=== PATIENT | male | born 1940 | race Caucasian/White ===

== ENCOUNTER 2016-04-05 05:57 | Day surgery (SDC) | payer OTHER ==
--- NOTE | 2016-04-03 11:54 | EKG Report ---
Test Performed on : 04/03/2016 11:36:40 AM Test Reason : PAT Blood Pressure : / mmHG Vent. Rate : 078 BPM Atrial Rate : 078 BPM P-R Int : 330 ms QRS Dur : 142 ms QT Int : 428 ms P-R-T Axes : 070 103 -04 degrees QTc Int : 487 ms Sinus rhythm. with 1st degree AV block. Right bundle branch block Possible Inferior infarct , age undetermined Abnormal ECG When compared with ECG of 20-FEB-2016 17:53, No significant change was found Confirmed by Jeronimo Ko MD ([id number]) on 04/03/2016 9:51:42 PM
[2016-04-05] MEDS ORDERED: PEPCID ONE (06:17)
[2016-04-05] MEDS ORDERED: REGLAN ONE (06:17)
[2016-04-05] MEDS ORDERED: 1/2 NS 500 ML ONE (06:17)
[2016-04-05] MEDS ORDERED: KEFZOL 1 GM/D5W 50 ML ONE (06:18)
[2016-04-05 06:39] LABS: HEMATOCRIT 29.9 % (42.0-52.0); HEMOGLOBIN 10.4 g/dL (14.0-18.0); MCH 35.3 PG (27-31); MCHC 34.8 g/dL (33-37); MCV 101.4 FL (81-99); MPV 9.9 FL (7.4-10.4); RBC 2.95 XMIL (4.7-6.1)
[2016-04-05 07:14] LABS: CALCIUM 9.8 mg/dL (8.8-10.2); POTASSIUM 4.2 mmol/L (3.5-5.1)
[2016-04-05] MEDS: HUMULIN R ONE (07:55)
[2016-04-05] MEDS ORDERED: HEPARIN ONE ×2 (08:03→13:12)
[2016-04-05] MEDS ORDERED: KEFZOL ONE (08:03)
[2016-04-05] MEDS ORDERED: XYLOCAINE 1%/EPI 1:100,000 ONE (08:04)
[2016-04-05] MEDS ORDERED: NS 1,000 ML ONE (08:04)
--- NOTE | 2016-04-05 10:18 | OPERATIVE NOTE ---
PROCEDURE DATE: 04/05/2016 DATE OF SURGERY: 04/05/2016. PROCEDURE: Construction of left radiocephalic arteriovenous fistula; removal of peritoneal dialysis catheter. SURGEON: Dr. Kamran Menendez. RADIOLOGY RN: Kajal. PREOPERATIVE DIAGNOSIS: Chronic kidney disease, V. POSTOPERATIVE DIAGNOSIS: Chronic kidney disease, V. INDICATIONS: A 75-year-old who does not want to continue PD dialysis; he prefers to switch to hemo for permanent dialysis. DESCRIPTION OF PROCEDURE: Satisfactory general anesthesia was achieved. The left arm was extended, prepped and draped in a sterile fashion. We made a curvilinear linwood on the radial side of the forearm near the wrist. We anesthetized the skin with 1% lidocaine with epinephrine, incised the skin, and carried our incision through the subcutaneous tissue. We identified the left radial artery. It was somewhat calcific. We surrounded with vessel loops proximally and distally. We gave the patient 5000 units of heparin systemically. We then identified the cephalic vein, and we noted where it branched. We marked the vein so we would not twist it. We then ligated the branches, suture ligated them both and divided the vein so that we would have a spatulated vein at the anastomotic site. We irrigated out the vein with heparinized saline to dilate it somewhat. We then translocated it over to the artery. We then occluded flow in the artery with some DeBakey clamps because of the calcium. We incised the artery on its radial side. We made a longitudinal arteriotomy that was probably about 3-4 mm long. We then laid the spatulated vein over to the artery, and then used a 7-0 Prolene stitch under 2.5 loupe magnification to construct the end-to-side anastomosis. Before we finished the anastomosis, we passed a 2 probe distal and proximal to be sure that the artery was preserved after being clamped, and it was. There was good flow. We then finished the anastomosis and flow was established. A couple of extra stitches provided complete hemostasis and flow was present in the vein. We placed 3-0 Polysorb in the subcutaneous tissue and closed the skin with a 4-0 Polysorb subcuticular stitch. Telfa and sterile OpSite were applied. We then reprepped and draped the abdomen with the PD catheter exiting the prepped area in the upper outer quadrant. We anesthetized the skin at the umbilicus. We incised the skin, and carried our incision down to the fascia level. There the tunnel catheter was coming into the wound. We then dissected up the tunnel until we freed up the cuff. We divided the catheter externally and then delivered the tunnel portion of the catheter through the wound. We then freed up the cuff from the fascia, incising the fascia around it circumferentially until we reached the non cuff portion inside the abdominal cavity. Then, this allowed us to deliver that portion out of the abdominal cavity completely. The catheter was then handed off. The hole in the fascia was then closed with a 2-0 Polysorb [id number] stitch. Then, 3-0 Polysorb was placed in the subcutaneous tissue, and the skin was closed with 4-0 Polysorb subcuticular stitch. Telfa and sterile OpSite was applied. A Band-Aid was placed over the catheter exit site. He tolerated it well and was sent to the recovery room in satisfactory condition.
[2016-04-05 12:01] VITALS: BP 147/70
[2016-04-05] MEDS ORDERED: VERSED ONE (13:02)
[2016-04-05] MEDS ORDERED: KETAMINE (DOSE) ONE (13:03)
[2016-04-05] MEDS ORDERED: AMIDATE ONE (13:13)
[2016-04-05] MEDS ORDERED: EPHEDRINE ONE (13:13)
[2016-04-05] MEDS ORDERED: XYLOCAINE-MPF 2% ONE (13:13)
[2016-04-05] MEDS ORDERED: NS 250 ML ONE (13:14)
== END 2016-04-05 11:40 | disposition home or self-care (01) ==
LOC: OPS 05:57
PROVIDERS: ATTEND Surgery
DX: I12.0 Hypertensive chronic kidney disease with stage 5 chronic kidney disease or end stage renal disease (principal); N18.5 Chronic kidney disease, stage 5; Z87.891 Personal history of nicotine dependence
CPT/HCPCS: 80048; 82948; 85027; 93005; 93010; J0690; J1644; J2250; J7030; J7050

== ENCOUNTER 2018-02-13 15:56 | Inpatient (IN) ==
[2018-02-13] MEDS ORDERED: TYLENOL PO PRN (16:22)
[2018-02-13] MEDS ORDERED: ZOFRAN IV PRN (16:22)
[2018-02-13] MEDS ORDERED: SALINE LOCK IV FLUID XX ONE (16:22)
[2018-02-13] MEDS ORDERED: RENAGEL PO SCH (17:00)
[2018-02-13] MEDS: SOLU-MEDROL IV SCH (17:45)
[2018-02-13] MEDS: ROCEPHIN 1 GM in NS 50 ML IV SCH (17:48)
[2018-02-13] MEDS: ROBITUSSIN-DM PO SCH ×2 (17:49→21:26)
[2018-02-13] MEDS: ALBUTEROL NEB INH SCH ×2 (19:30→23:35)
[2018-02-13] MEDS ORDERED: INSULIN PEN NEEDLES ONE (20:36)
[2018-02-13] MEDS: ELIQUIS PO SCH (21:22)
[2018-02-13] MEDS: ZITHROMAX 500 MG/NS 500 MG/250 ML IVPB IV SCH (21:22)
[2018-02-13] MEDS: BASAGLAR SUBQ SCH (21:23)
[2018-02-13] MEDS: ATIVAN PO PRN (21:31)
[2018-02-13] MEDS: HUMULIN R SUBQ SCH (21:31)
--- NOTE | 2018-02-14 00:15 | HISTORY AND PHYSICAL ---
CHIEF COMPLAINT: Wheezing and cough. HPI: The patient is a 77-year-old white male comes in with 2 to 3 day history of prominent chest congestion and wheezing, shortness of breath with any exertion at all, struggling to breathe at night. He woke up around 3:30 a.m. with shortness of breath this morning. He has had some 6 month history of some mild cough. This had really worsened over the past 2 to 3 days. The patient had a negative chest x-ray on 08/27/2017. He suffers from ESRD and is on hemodialysis and followed by Dr. Soriano with last hemodialysis yesterday. He takes hemodialysis on Tuesdays, and Saturdays per Dr. Soriano. He says they have been trying to take some fluid off of him recently but he has been unable do so due to severe weakness. MEDICATIONS: Prior to admission are Lipitor 40 mg p.o. daily, Flomax 0.4 mg p.o. daily, vitamin D3 2000 units p.o. daily, Synthroid 75 mcg p.o. daily, Eliquis 2.5 mg p.o. b.i.d., Ativan 1 mg p.o. q.4 hours p.r.n. anxiety he takes this prior to his hemodialysis treatments, Dialyvite 800 tablet 0.8 mg p.o. daily, calcitriol 0.25 mcg p.o. daily, Renvela 800 mg 3 p.o. t.i.d., MiraLAX 17 g in 8 ounces of water daily, Endocet 10 one p.o. q.4 hours p.r.n. pain. ALLERGIES: Hydrocodone and milk products. PAST MEDICAL HISTORY: 1. Diabetes mellitus dating back to 1989 on chronic insulin treatment now. 2. BPH. 3. History of kidney stones. 4. History of glaucoma remote. 5. History of benign colon polyps. 6. Erectile dysfunction. 7. Bladder cancer 2001. 8. Hypercholesterolemia. 9. CAD with prior history of CABG diagnosed 2005. 10. Paroxysmal atrial fibrillation and flutter dating back to 2005 when he had his CABG but atrial flutter occurred in 2013. 11. Hypothyroidism. 12. ESRD on hemodialysis since 2015. PAST SURGICAL HISTORY: 1. Kidney stone extraction x2. 2. Anal fissurectomy. 3. Skin graft to right leg. 4. TURP. 5. Bladder cancer surgery 2001. 6. Left cataract 2002. 7. Lithotripsy. 8. CABG 2005. 9. Partial thyroidectomy. 10. Right CTS release December 2010. 11. Knee arthroscopy December 2007. 12. Bronchoscopy March 2010. IMMUNIZATIONS: Pneumovax 23 given December 1998 and April 2004, influenza vaccination given October 2017, Zostavax given November 2006. SOCIAL HISTORY: The patient lives in [place]. He is . He has 2 daughters. Retired government worker. Quit smoking in 1981 and has a 20 pack year history of smoking. Has been a drinker about 2 beers per week in the past but has not been a drinker of late. ROS: Negative except as above. PHYSICAL EXAMINATION: Height 6 feet 3 inches tall, weight 285, blood pressure 130/70, heart rate 72, BMI 36, temperature 96.8, O2 saturation on room air 92-93%, respirations 36. GENERAL: Moderately obese white male with marked increased work of breathing and tachypnea. SKIN: No skin breakdown. HEENT: NC/AT, JAMES, EOMI. Sclerae anicteric. OP no significant redness. Tongue in the midline. NECK: No LA, TMG or bruits. Mild JVD. CV: RRR without distinct murmur. LUNGS: Coarse breath sounds bilaterally with mild to moderate expiratory wheezes, albuterol nebulizer treatment given in the office and he saw some mild improvement in the wheezes with that. BACK: Nontender. ABDOMEN: Protuberant, soft, no mass, organomegaly appreciated but abdomen is quite large. /RECTAL: Deferred. EXTREMITIES: 2+ lower extremity edema chronic. NEURO: Cranial nerves are intact. He moves all extremities well. No focal deficits. DATA: Chest x-ray was obtained and shows no acute disease. Labs show white count of 9.22, hemoglobin 10, hematocrit 32.2, MCV 105, platelets 163,000, neutrophils 75, lymphocytes 9.1, monocytes 11. Sodium 140, potassium 5.1, chloride 95, CO2 27, BUN 69, creatinine 8.5, glucose 242, calcium 9.2, proBNP 17,332, plasma lactate 1.2. ABG on room air pH 7.35, pCO2 51, PO2 59, HC03 26.3, O2 saturation 91.4. ASSESSMENT: 1. Acute respiratory distress with hypercapnia associated with #2 . 2. Acute bronchitis. 3. Mild diastolic congestive heart failure associated with end-stage renal disease. 4. End-stage renal disease on hemodialysis per Dr. Soriano. 5. Coronary artery disease. 6. Paroxysmal atrial fibrillation /flutter on chronic anticoagulation. 7. Hypothyroidism. 8. Remote history of bladder cancer. 9. Hypercholesterolemia. 10. Insulin-requiring diabetes mellitus. PLAN: Will admit the patient to [facility]. Keep him at saline lock. Will ask Dr. Soriano to consult in regard to his hemodialysis treatments. Will start him on IV antibiotics in the form of Rocephin and Zithromax, give him Solu-Medrol and albuterol nebulizer treatments, Robituscam SILVER to help with pulmonary toilet. Will give him oxygen supplementation 2 L/minute per nasal cannula during the day and BiPAP at night to try to help with the hypercapnia. Will continue his home medications. Will monitor serial Accu-Cheks and give him SSI as we expect his blood sugar to rise associated with the steroid administration. Continue his Basaglar in relation to that as well. cc: Pop Ward MD
[2018-02-14] MEDS: SOLU-MEDROL IV SCH ×3 (01:20→16:34)
[2018-02-14] MEDS: ROBITUSSIN-DM PO SCH ×6 (01:20→21:22)
[2018-02-14] MEDS: ALBUTEROL NEB INH SCH ×6 (03:30→22:56)
[2018-02-14] MEDS: HUMULIN R SUBQ SCH ×5 (05:25→21:38)
[2018-02-14 06:09] LABS: BASO# 0.01 X1000 (0.0-0.2); BASO% 0.1 % (0.0-0.8); EOS# 0.01 X1000 (0.0-0.7); EOS% 0.1 % (0.0-10.0); HEMOGLOBIN 10.1 g/dL (14.0-18.0); IMM GRAN# 0.06 X1000 (0.0-0.04); IMM GRAN% 0.7 % (0.0-0.5); LYMPH% 3.3 % (20.5-51.1); MCH 33.4 PG (27-31); MCHC 31.6 g/dL (33-37); MONO# 0.09 X1000 (0.11-0.59); MPV 10.3 FL (7.4-10.4); NEUT# 8.66 X1000 (1.4-6.5); NEUT% 94.8 % (42.2-75.2); PLT 134 X1000 (130-400); RBC 3.02 XMIL (4.7-6.1); RDW 17.7 % (11.5-14.5); WBC 9.13 X1000 (4.8-10.8)
[2018-02-14 06:13] LABS: HEMOGLOBIN A1C 7.5 % (4.8-6.0)
[2018-02-14] MEDS: SYNTHROID PO SCH (06:25)
[2018-02-14 07:05] LABS: CALCIUM 8.9 mg/dL (8.8-10.2); CREATININE 9.9 mg/dL (0.7-1.2)
[2018-02-14 07:37] LABS: BANDS 2 % (0-1); LYMPHS 2 % (21-51); SEGS 96 % (42-75)
[2018-02-14] MEDS ORDERED: INSULIN PEN NEEDLES ONE (08:29)
[2018-02-14] MEDS: NEPHRO-VITE PO SCH (08:34)
[2018-02-14] MEDS: FLOMAX PO SCH (08:34)
[2018-02-14] MEDS: ELIQUIS PO SCH ×2 (08:35→21:24)
[2018-02-14] MEDS: MIRALAX PO SCH (08:35)
[2018-02-14] MEDS: LIPITOR PO SCH (08:35)
[2018-02-14] MEDS: ROCALTROL PO SCH (08:35)
[2018-02-14] MEDS: VITAMIN D PO SCH (08:35)
[2018-02-14] MEDS: ZYLOPRIM PO SCH (08:40)
[2018-02-14] MEDS: BASAGLAR SUBQ SCH ×2 (08:40→21:38)
[2018-02-14] MEDS ORDERED: TIGHT: 0.2 ML/HR FOR DIALYSIS MISC PRN (09:36)
[2018-02-14] MEDS ORDERED: HEPARIN IV PRN (09:36)
[2018-02-14] MEDS ORDERED: NS 2,000 ML MISC PRN (09:36)
[2018-02-14] MEDS: TUMS PO SCH ×2 (12:08→16:35)
--- NOTE | 2018-02-14 12:24 | PROGRESS NOTE ---
DATE: 02/14/2018 SUBJECTIVE: The patient is awake and alert. He seemed a little confused, but not severely. He has not yet gone down to dialysis. His potassium is high. OBJECTIVE: Afebrile, pulse 74, respirations 15, blood pressure 133/50, O2 saturation on 5 L 98%. CV: RRR without distinct murmur. Lungs: Mild expiratory wheezes bilaterally, not particularly changed from yesterday. Abdomen very protuberant, soft, nontender. Active bowel sounds. Extremities: 2+ lower extremity edema. Neurologic: He moves all extremities well. No focal deficits. Mild confusion. LABORATORY DATA: Sodium 139, potassium 6.0, chloride 95, CO2 of 21. BUN 85, creatinine 9.9, blood sugars in the low 300s. A1c 7.5, calcium 8.9. White count 9.13, hemoglobin 10.1. Platelets 134,000. Neutrophils 95, lymphocytes 3.3. ASSESSMENT: 1. Acute respiratory distress with hypercapnia. 2. Acute bronchitis. 3. Diastolic congestive heart failure exacerbation associated with end-stage renal disease. 4. End-stage renal disease; on hemodialysis per Dr. Soriano. 5. Hyperkalemia associated with his renal disease. 6. Coronary artery disease. 7. Paroxysmal atrial fibrillation/flutter; on chronic anticoagulation. 8. Hypothyroidism. 9. Remote history of bladder cancer. 10. Hypercholesterolemia. 11. Insulin resistant diabetes mellitus. PLAN: We are going to continue him on IV antibiotics in the form of Rocephin and Zithromax. Continue IV Solu-Medrol, albuterol nebulizer treatments, Robitussin DM. We have given him supplemental oxygen, but I am fearful he is getting a little extra oxygen at this point, and he did do the BiPAP well with tolerability last evening and was trying to use at night and oxygen during the day. We will check an ABG now to see if we need to add BiPAP during the day. Hopefully, the dialysis that he will receive today per Dr. Soriano will help as well in regard to his lung status. Continue serial Accu-Cheks. Will bump his SSI up from medium dose to high-dose to account for the elevation associated with the steroid administration. Continue Basaglar b.i.d. that he is on at home. Repeat labs, ABG, chest x-ray in the morning. cc: Pop Ward MD MTDD
[2018-02-14 12:39] LABS: ALLEN TEST YES; BE -7.2 mmoll (-3.0-3.0); BLOOD TYPE ARTERIAL; HCO3-(ACT) 19.3 mmoll (20.0-26.0); METHB 1.3 % (0.0-1.5); O2(CT) 13.3 mL/dL (15.0-23.0); O2HB 93.5 % (95.0-99.0); PO2(98.6) 91 mmHg (60-100); SAMPLE BLOOD; SAO2 95.5 % (95.0-100.0)
[2018-02-14 12:41] LABS: MODALITY CANNULA; PCO2(98.6) 59 mmHg (35-45); pH(98.6) 7.17 (7.35-7.45)
[2018-02-14] MEDS ORDERED: VANCOMYCIN 1 GM/NS 1 GM/250 ML IVPB IV SCH (13:00)
[2018-02-14] MEDS ORDERED: TUMS PO SCH (13:00)
[2018-02-14] MEDS ORDERED: VANCOMYCIN IV PER PHARMACY MISC SCH (13:00)
--- NOTE | 2018-02-14 14:56 | NEPHROLOGY CONSULTATION ---
DATE: 02/14/2018 REASON FOR CONSULTATION: End-stage renal disease, on hemodialysis. HISTORY OF PRESENT ILLNESS: Mr. Ayala is a 77-year-old white male. He is well known to us. He has CKD 5D secondary to diabetes. Also, history of atrial fibrillation, coronary disease, peripheral vascular disease, hypertension, BPH, etc. He has had 2 to 3 days of worsening cough, nasal discharge, increasing shortness of breath. He had his normal dialysis on at which time wheezing was noted. He sought attention with Dr. Ward and was admitted on Friday. No chills, fever, sweats, night sweats, etc. PAST MEDICAL HISTORY: As listed above. HOME MEDICATIONS: 1. Atorvastatin. 2. Tamsulosin. 3. Cholecalciferol. 4. Levothyroxine. 5. Allopurinol. 6. Apixaban. 7. Insulin. 8. Cinacalcet. 9. Diphenhydramine. 10. Insulin. 11. Lorazepam. 12. Melatonin. 13. Multivitamin. 14. Calcium carbonate. ALLERGIES: Hydrocodone. SOCIAL HISTORY: He lives with his . She is his primary caregiver. No alcohol or tobacco. FAMILY HISTORY: Noncontributory. REVIEW OF SYSTEMS: Noncontributory. PHYSICAL EXAMINATION: Vital Signs: Blood pressure 133/50, heart rate 74, respirations 15, afebrile. General: No acute distress, but he is sitting up and has increased respiratory rate and work of breathing. Skin: Warm and dry. Conjunctivae are pink. Oropharynx is clear. Neck: Supple. Neck veins are increased. Trachea is midline. Heart: Regular with systolic murmur. Lungs: Have equal breath sounds with wheezes and rhonchi. Decreased breath sounds overall. Abdomen: Obese, soft, nontender. Bowel sounds are present. Extremities: Have 2+ edema. No clubbing or cyanosis. IMPRESSION: 1. Chronic kidney disease 5D. Moderate hyperkalemia today. Potassium 6.0. Anemia in target. 2. Acidosis: Acute respiratory acidosis. This can be managed by BiPAP if needed. 3. He will have hemodialysis today with a goal of 4 L ultrafiltration. Over the next week, we will dialyze daily to address his volume overload aggressively. cc: MD Pop Chow MD
[2018-02-14] MEDS: ROCEPHIN 1 GM in NS 50 ML IV SCH (16:34)
[2018-02-14] MEDS ORDERED: VANCOMYCIN 1 GM/NS 1 GM/250 ML IVPB IV ONE (17:00)
[2018-02-14] MEDS: PERCOCET-10 PO PRN (21:23)
[2018-02-14] MEDS: ATIVAN PO PRN (21:23)
[2018-02-14] MEDS: ZITHROMAX 500 MG/NS 500 MG/250 ML IVPB IV SCH (21:24)
[2018-02-15] MEDS: SOLU-MEDROL IV SCH ×3 (01:02→16:50)
[2018-02-15] MEDS: ROBITUSSIN-DM PO SCH ×6 (01:03→20:51)
[2018-02-15] MEDS: ATIVAN PO PRN ×2 (01:55→20:50)
[2018-02-15] MEDS: PERCOCET-10 PO PRN ×2 (01:55→20:49)
[2018-02-15] MEDS: ALBUTEROL NEB INH SCH ×6 (03:40→23:04)
[2018-02-15 04:03] LABS: ALLEN TEST YES; BE 0.1 mmoll (-3.0-3.0); BLOOD TYPE ARTERIAL; O2(CT) 13.4 mL/dL (15.0-23.0); O2HB 97.3 % (95.0-99.0); PO2(98.6) 117 mmHg (60-100); SAMPLE BLOOD; SAO2 99.5 % (95.0-100.0); THB 9.6 g/dL (11.5-17.4); pH(98.6) 7.25 (7.35-7.45)
[2018-02-15 04:05] LABS: MODALITY BI PAP
[2018-02-15 04:06] LABS: PCO2(98.6) 64 mmHg (35-45)
[2018-02-15 05:52] LABS: HEMATOCRIT 31.4 % (42.0-52.0); HEMOGLOBIN 9.8 g/dL (14.0-18.0); IMM GRAN# 0.09 X1000 (0.0-0.04); IMM GRAN% 0.5 % (0.0-0.5); LYMPH# 0.38 X1000 (1.2-3.4); LYMPH% 2.3 % (20.5-51.1); MCHC 31.2 g/dL (33-37); MCV 105.7 FL (81-99); MONO# 0.53 X1000 (0.11-0.59); MONO% 3.1 % (1.7-9.3); MPV 10.2 FL (7.4-10.4); NEUT# 15.83 X1000 (1.4-6.5); NEUT% 94.1 % (42.2-75.2); PLT 145 X1000 (130-400); RBC 2.97 XMIL (4.7-6.1); RDW 18.1 % (11.5-14.5); WBC 16.83 X1000 (4.8-10.8)
[2018-02-15 06:10] LABS: CALCIUM 9.5 mg/dL (8.8-10.2); CREATININE 8.5 mg/dL (0.7-1.2); POTASSIUM 5.4 mmol/L (3.5-5.1)
[2018-02-15] MEDS: SYNTHROID PO SCH (06:11)
[2018-02-15] MEDS: HUMULIN R SUBQ SCH ×4 (06:13→21:38)
--- NOTE | 2018-02-15 07:22 | Diag Imaging Result Doc PS360 ---
EXAM: CHEST-PORTABLE 02/15/2018 HISTORY: hypoxia TECHNIQUE: AP portable at 0453 COMMENT: The inspiration is less optimal than on 02/13/2018. There is increased opacity in both lung bases which may be due to atelectasis. IMPRESSION: Poor inspiration. Bibasilar atelectasis. Electronically signed by Cipriano Westbrook 02/15/2018 7:20 AM
[2018-02-15 07:59] LABS: SEGS 100 % (42-75)
[2018-02-15] MEDS: ROCALTROL PO SCH (08:59)
[2018-02-15] MEDS: FLOMAX PO SCH (08:59)
[2018-02-15] MEDS: ZYLOPRIM PO SCH (08:59)
[2018-02-15] MEDS: VITAMIN D PO SCH (08:59)
[2018-02-15] MEDS: NEPHRO-VITE PO SCH (09:00)
[2018-02-15] MEDS: ELIQUIS PO SCH ×2 (09:00→20:49)
[2018-02-15] MEDS: MIRALAX PO SCH (09:00)
[2018-02-15] MEDS: TUMS PO SCH ×3 (09:00→16:50)
[2018-02-15] MEDS: LIPITOR PO SCH (09:01)
[2018-02-15] MEDS: BASAGLAR SUBQ SCH ×2 (09:08→20:49)
--- NOTE | 2018-02-15 14:21 | PROGRESS NOTE ---
DATE: 02/15/2018 SUBJECTIVE: Patient remains in the step-down unit. He has had some periods of confusion, but overall has been compliant generally with the BiPAP, which has been continuous. He complains he has not been able to eat with the BiPAP on. OBJECTIVE: Afebrile. Pulse 89, respirations 24, blood pressure 128/39, O2 sat on 36%, 93%. Positive BM.Cardiovascular: RRR. No significant murmur. Lungs: Improved breath sounds. No major wheezes. Good air movement. Maybe decreased breath sounds slightly at the lung bases, left greater than right. Abdomen: Soft. Active bowel sounds. Nontender, nondistended. Extremities: 2+ lower extremity edema. LAB DATA: Shows white count is increased from 9 to 16, but this is on IV steroids. Hemoglobin 9.8, platelets 145,000. Sodium 138, potassium 5.4, chloride 94, CO2 27, BUN 74, creatinine 8.5, glucose high 100s to low 200s, calcium 9.5. ABG on 40% per BiPAP this morning reveals pH 7.25, pCO2 64, PO2 117, HC03 25, O2 sat 99.5%. Chest x-ray today reveals poor inspiration, bibasilar atelectasis. ASSESSMENT: 1. Acute respiratory distress with hypercapnia, persistent. Primarily this seems to be related to #2. 2. Diastolic CHF exacerbation associated with ESRD, with patient not able to stay on dialysis treatments long. He asked them to take him off. He was able to get 2.3 L off yesterday, whereas the goal was 3 to [address] Soriano and he has been cutting it short daily for several days, outpatient as well. 3. Acute bronchitis. 4. End-stage renal disease, on hemodialysis per Dr. Soriano. 5. Hyperkalemia, improved after one hemodialysis treatment yesterday. 6. Coronary artery disease. 7. PAF/flutter, on chronic anticoagulation. 8. Hypothyroidism. 9. Remote history of bladder cancer. 10. Hypercholesterolemia. 11. IRDM. PLAN: We are continuing IV antibiotics in the form of Rocephin and Zithromax and yesterday we added vancomycin for complete coverage. The patient had blood cultures just prior to admission on the day of admission, which have remained negative. Notably, lactic acid level has decreased to 1.1 from 2.7 yesterday. Continue BiPAP with lower dosage of FiO2 oxygen at 36%, and will continue IV steroids and albuterol nebulizer treatments. It is imperative he continued to undergo hemodialysis which I believe will help him the most at this point and will take him off the BiPAP briefly to allow him to eat his meals and he can remain on about 4 L during those meals per nasal cannula. cc: Pop Ward MD
[2018-02-15] MEDS: ROCEPHIN 1 GM in NS 50 ML IV SCH (16:50)
[2018-02-15] MEDS: ZITHROMAX 500 MG/NS 500 MG/250 ML IVPB IV SCH (20:50)
[2018-02-16] MEDS: SOLU-MEDROL IV SCH ×3 (00:40→21:42)
[2018-02-16] MEDS: ROBITUSSIN-DM PO SCH ×4 (00:41→14:18)
[2018-02-16] MEDS: ATIVAN PO PRN (00:41)
[2018-02-16] MEDS: ALBUTEROL NEB INH SCH ×6 (02:51→23:26)
[2018-02-16 05:14] LABS: ALLEN TEST YES; BE -5.8 mmoll (-3.0-3.0); BLOOD TYPE ARTERIAL; HCO3-(ACT) 20.4 mmoll (20.0-26.0); METHB 0.5 % (0.0-1.5); O2(CT) 16.4 mL/dL (15.0-23.0); O2HB 94.9 % (95.0-99.0); PO2(98.6) 97 mmHg (60-100); SAMPLE BLOOD; SAO2 96.3 % (95.0-100.0); THB 12.2 g/dL (11.5-17.4)
[2018-02-16 05:15] LABS: MODALITY BI PAP
[2018-02-16 05:16] LABS: PCO2(98.6) 67 mmHg (35-45)
[2018-02-16 05:17] LABS: pH(98.6) 7.16 (7.35-7.45)
[2018-02-16 05:31] LABS: BASO# 0.01 X1000 (0.0-0.2); BASO% 0.1 % (0.0-0.8); HEMATOCRIT 32.5 % (42.0-52.0); HEMOGLOBIN 10.1 g/dL (14.0-18.0); IMM GRAN# 0.13 X1000 (0.0-0.04); IMM GRAN% 0.7 % (0.0-0.5); LYMPH# 0.37 X1000 (1.2-3.4); LYMPH% 2.1 % (20.5-51.1); MCH 32.8 PG (27-31); MCHC 31.1 g/dL (33-37); MCV 105.5 FL (81-99); MONO# 0.48 X1000 (0.11-0.59); MONO% 2.8 % (1.7-9.3); MPV 10.1 FL (7.4-10.4); NEUT# 16.46 X1000 (1.4-6.5); NEUT% 94.3 % (42.2-75.2); PLT 141 X1000 (130-400); RBC 3.08 XMIL (4.7-6.1); RDW 17.9 % (11.5-14.5); WBC 17.45 X1000 (4.8-10.8)
[2018-02-16 06:00] LABS: CALCIUM 9.4 mg/dL (8.8-10.2)
[2018-02-16 06:03] LABS: CREATININE 10.2 mg/dL (0.7-1.2); POTASSIUM 6.5 mmol/L (3.5-5.1)
--- NOTE | 2018-02-16 06:21 | Diag Imaging Result Doc PS360 ---
EXAM: CHEST-PORTABLE HISTORY: dyspnea TECHNIQUE: Chest single view COMPARISON: 02/15/2018 FINDINGS: Poor inspiratory effort. The heart is borderline mildly prominent. Sternal wires are present. No consolidation. No pleural effusions identified. Mild vascular distention. IMPRESSION: No interval improvement. Electronically signed by Hunter Ma 02/16/2018 6:18 AM
[2018-02-16] MEDS: SYNTHROID PO SCH (06:33)
[2018-02-16] MEDS: HUMULIN R SUBQ SCH ×4 (06:36→22:29)
[2018-02-16] MEDS ORDERED: HEPARIN IV PRN (07:00)
[2018-02-16] MEDS ORDERED: TIGHT: 0.2 ML/HR FOR DIALYSIS MISC PRN (07:00)
[2018-02-16] MEDS ORDERED: NS 2,000 ML MISC PRN (07:00)
[2018-02-16] MEDS ORDERED: RISPERDAL PO PRN (08:24)
--- NOTE | 2018-02-16 09:07 | PROGRESS NOTE ---
DATE: 02/16/2018 SUBJECTIVE: The patient has gotten worse with his confusion during the night. He has been wearing the BiPAP but had to have soft restraints placed. Hypercapnia has worsened and he is acidotic. He did not receive dialysis yesterday but plans are made to do that this morning. OBJECTIVE: Vital Signs: Afebrile, pulse 104, respirations 14 to 28, blood pressure 103/62. General: Moderately obese, white male. Fairly calm at this time but in soft restraints. He is confused, moderate to severe. HEENT: PERRL. EOMI. Tongue in the midline. CV: Tachycardia, regular rhythm. Lungs: Rhonchi and crackles bilaterally. Abdomen: Protuberant, soft. Active bowel sounds. Extremities: There is 3+ lower extremity edema. Neurologic: He moves all extremities. He is confused but conversant. He is talking with his and with me, and he does not know me. Labs: Show white count 17,000, hemoglobin 10.1, platelets 141,000. Sodium 136, potassium 6.5, chloride 91, CO2 23, BUN 105, creatinine 10.2, blood sugar in the low 200s. ABG on 36% FiO2 shows pH 7.16, pCO2 of 67, PO2 97, O2 saturation 96. Chest x-ray reveals mild venous distention, otherwise negative. Not showing any improvement. Of course, he did not receive dialysis yesterday. ASSESSMENT: 1. Acute respiratory distress with hypercapnia, persistent, primarily related to #2 with a component of #3. 2. Diastolic congestive heart failure exacerbation associated with end-stage renal disease. 3. Acute bronchitis. 4. End-stage renal disease, on hemodialysis per Dr. Soriano. 5. Hyperkalemia. 6. Coronary artery disease. 7. Paroxysmal atrial fibrillation/flutter, on chronic anticoagulation with Eliquis. 8. Hypothyroidism. 9. Remote history of bladder cancer. 10. Hypercholesterolemia. 11. Insulin resistant diabetes mellitus. 12. Delirium associated with hypercapnia. PLAN: I have spoken with Dr. Soriano and he plans on dialyzing him either in the ICU or down in the dialysis unit, depending on which can be done most efficiently and quickly. We discussed a trial of Risperdal to see if that would help him as far as the agitation goes without sedating his respiratory status. Continue IV Rocephin, Zithromax, vancomycin. Continue albuterol nebulizers, BiPAP, and Solu-Medrol. We are continuing sliding scale insulin. Dialysis will be undertaken. Continue to follow his respiratory status closely. I talked with his in detail and she does desire for him to have mechanical ventilation should that be required. We will see how much better he gets after the dialysis. cc: Pop Ward MD
[2018-02-16] MEDS: BASAGLAR SUBQ SCH ×2 (10:43→22:28)
[2018-02-16] MEDS: ZYLOPRIM PO SCH (10:45)
[2018-02-16] MEDS: NEPHRO-VITE PO SCH (10:46)
[2018-02-16] MEDS: ROCALTROL PO SCH (10:46)
[2018-02-16] MEDS: MIRALAX PO SCH (10:46)
[2018-02-16] MEDS: TUMS PO SCH ×2 (10:46→14:18)
[2018-02-16] MEDS: VITAMIN D PO SCH (10:46)
[2018-02-16] MEDS: LIPITOR PO SCH (10:47)
[2018-02-16] MEDS: ELIQUIS PO SCH (10:47)
[2018-02-16] MEDS: FLOMAX PO SCH (10:47)
--- NOTE | 2018-02-16 13:43 | NEPHROLOGY PROGRESS NOTE ---
DATE: 02/16/2018 TIME SEEN: 0820 SUBJECTIVE: Mr. Ayala is resting quietly in bed. His is at his bedside. He has pulled his BiPAP mask off during the night. He has become slightly belligerent with the nursing staff. He would like to get out of bed. He is now bilateral upper extremity restrained. OBJECTIVE: His most recent vital signs temperature 97.6 degrees, blood pressure 103/62, heart rate 104, respirations 14. He is currently on 35% BiPAP. His last recorded saturation 98%. He has had 400 in, he has had 500 mL out. LAB: Sodium 136, potassium 6.5, chloride 91, CO2 23, BUN 105, creatinine 10.2, glucose 227, his anion gap is 22, last calcium 9.4. White count 17.45, hemoglobin 10.1, hematocrit 32.5 with a platelet count of 141,000. ABGs pH 7.16, CO2 67, pO2 97, bicarb 20.4. PHYSICAL EXAMINATION: General: This is a 77-year-old elderly white male he is currently resting quietly in bed, head of the bed is elevated. He is currently upper extremity restrained. He remains on BiPAP. HEENT: Normocephalic, atraumatic. Conjunctiva is pale. He has JAMES. Mucous membranes are dry. Neck: Supple, trachea midline. Unable to determine JVD due to BiPAP mask strap. Cardiovascular: He is regular rate and rhythm. He has a systolic murmur. Lungs: Diminished breath sounds bilateral. He does have some wheezes and rhonchi. Remains on BiPAP for support. Abdomen: Obese, soft, nontender, positive bowel sounds. Genitourinary: Not inspected, minimal void with dialysis assist. Extremities: Have 2+ edema. Neurological: He is alert to person. ASSESSMENT AND PLAN: 1. Chronic kidney disease stage 5D. The patient is due for his routine dialysis treatment today. He signed off early on Saturdays treatment. We will plan for dialysis today. We will place him on a 2 K bath. He is to dialyze for 3-1/2 hours. We will attempt to pull 3 to 4 L of ultrafiltration. We have instructed the patient and his that we will plan for daily dialysis to assist with his fluid volume overload and respiratory status. 2. Electrolytes and acid-base balance. These remain stable. 3. Anemia, this is close to target. 4. Leukocytosis. The patient remains on Rocephin and vancomycin. No indications for intervention. Like to thank you for allowing us to follow with this patient. Dictated by RACHELL Cornell for Esteban Soriano MD Face to face encounter, data reviewed, discussed with Michelle Pace on 02/16/18. I agree with the above assessment and plan of care. cc: RACHELL Cornell MD [facility], MD [facility]
[2018-02-16] MEDS ORDERED: VANCOMYCIN 1 GM/NS 1 GM/250 ML IVPB IV ONE (17:00)
[2018-02-16] MEDS: ROCEPHIN 1 GM in NS 50 ML IV SCH (21:02)
[2018-02-16] MEDS: SODIUM BICARBONATE 8.4% IV PUSH SCH (21:02)
[2018-02-16] MEDS: ATIVAN IV PRN (21:41)
[2018-02-16] MEDS: ZITHROMAX 500 MG/NS 500 MG/250 ML IVPB IV SCH (21:42)
[2018-02-17] MEDS: SODIUM BICARBONATE 8.4% IV PUSH SCH (02:59)
[2018-02-17] MEDS: SOLU-MEDROL IV SCH ×3 (02:59→20:44)
[2018-02-17] MEDS: ALBUTEROL NEB INH SCH ×7 (03:22→22:46)
[2018-02-17] MEDS: ATIVAN IV PRN (03:57)
--- NOTE | 2018-02-17 04:00 | PULMONOLOGY CONSULTATION ---
DATE: 02/16/2018 REQUESTING PHYSICIAN: Dr. Kimbrough. REASON FOR CONSULTATION: Respiratory failure. HISTORY OF PRESENT ILLNESS: Mr. Ayala is a 77-year-old, white male with a 20 pack year history for tobacco, morbid obesity, and end-stage renal disease on hemodialysis who was admitted to the hospital on 02/13/2018 with a 6 weak cough, paroxysmal nocturnal dyspnea, with increasing shortness of breath. Arterial blood gas on admission revealed a pH of 7.17, pCO2 of 59, and a PO2 of 91. He underwent hemodialysis with clinical improvement but did not have dialysis this weekend. He has developed delirium which is complicating his medical care. He currently is in hemodialysis and has had approximately 3.6 L of fluid removed. The dialysis nursing staff indicates his breathing has improved and he has become much less restless. PAST MEDICAL HISTORY/PROBLEM LIST: 1. End-stage renal disease, on hemodialysis. 2. Morbid obesity. 3. Diabetes mellitus. 4. History of nephrolithiasis. 5. History of bladder cancer. 6. Coronary artery disease, status post bypass grafting in 2005. 7. Hypothyroidism. 8. Status post partial thyroidectomy. SOCIAL HISTORY: The patient has a 20 pack year history for tobacco but has not smoked for more than 40 years. History of beer use in the past, according to Dr. Ward's intake note, but not recently. PHYSICAL EXAMINATION: General: Reveals a morbidly obese, white male, currently on BiPAP in the hemodialysis unit. He has no increased work of breathing. Vital Signs: Blood pressure 137/68, heart rate 19, oxygen saturation 95%. HEENT: Pupils are equal and reactive. Oropharynx appears dry but clear, with BiPAP in place. Neck: Supple. Chest: Reveals shallow air entry bilaterally with bilateral rhonchi. No significant wheezing. No accessory muscle use. Cardiac Examination: S1-S2. Abdomen: Obese and soft. Extremities: Reveal evidence of recent dialysis with wrinkling of the feet, suggesting significant fluid removal. LABORATORIES: Arterial blood gas this morning reveals a pH of 7.16, pCO2 of 67, PO2 of 97 on BiPAP. Chemistries: Sodium 136, potassium 6.5, chloride 91, bicarbonate 23, BUN 105, creatinine 10.2, glucose 227. White blood count 17.45, hemoglobin 10.1, platelet count 141,000. Chest x-ray reveals generous cardiac silhouette, shallow inspiration with mild vascular distention. IMPRESSION: A 77-year-old with morbid obesity, long history of diabetes mellitus, with probable chronic hypercapnia possibly related to obesity and prior tobacco use. The patient now has acute hypercapnic respiratory failure and acute hypoxemic respiratory failure. By description, he has improved following hemodialysis today, similar to his improvement following hemodialysis after admission. The patient is at risk for nocturnal oxygen desaturation and obstructive sleep apnea. It is not clear if he is on a CPAP machine at home but this will be discussed with Dr. Ward. If he has not had a sleep evaluation, that will be recommended at the time of discharge. RECOMMENDATIONS: 1. Complete hemodialysis this evening. 2. Supplement serum bicarbonate with 2 ampules of sodium bicarbonate tonight. The patient's serum bicarbonate would likely run in the mid 30s but he might not reach that goal with his end-stage renal disease. 3. Continue BiPAP through the evening. We will re-evaluate discontinuing BiPAP after his blood gas in the morning. 4. From a pulmonary standpoint, the patient would benefit from weight loss, although this typically has a poor prognostic finding in a patient with end-stage renal disease. 5. Recommend outpatient sleep apnea evaluation. 6. Continue ICU monitoring. The patient remains at risk for progressive respiratory failure and intubation. cc: MD Pop Alvares MD
[2018-02-17 05:44] LABS: BASO# 0.01 X1000 (0.0-0.2); BASO% 0.1 % (0.0-0.8); HEMATOCRIT 32.2 % (42.0-52.0); HEMOGLOBIN 10.1 g/dL (14.0-18.0); IMM GRAN# 0.09 X1000 (0.0-0.04); IMM GRAN% 0.6 % (0.0-0.5); LYMPH% 2.8 % (20.5-51.1); MCHC 31.4 g/dL (33-37); MCV 105.2 FL (81-99); MONO# 0.31 X1000 (0.11-0.59); MONO% 2.1 % (1.7-9.3); MPV 10.3 FL (7.4-10.4); NEUT# 13.69 X1000 (1.4-6.5); NEUT% 94.4 % (42.2-75.2); PLT 126 X1000 (130-400); RBC 3.06 XMIL (4.7-6.1); RDW 17.5 % (11.5-14.5)
[2018-02-17 06:01] LABS: ALLEN TEST YES; BE -0.9 mmoll (-3.0-3.0); BLOOD TYPE ARTERIAL; HCO3-(ACT) 24.1 mmoll (20.0-26.0); METHB 0.9 % (0.0-1.5); O2(CT) 17.1 mL/dL (15.0-23.0); O2HB 91.4 % (95.0-99.0); PO2(98.6) 77 mmHg (60-100); SAMPLE BLOOD; SAO2 93.5 % (95.0-100.0); THB 13.3 g/dL (11.5-17.4)
[2018-02-17 06:03] LABS: MODALITY BI PAP
[2018-02-17 06:04] LABS: PCO2(98.6) 82 mmHg (35-45)
[2018-02-17 06:05] LABS: pH(98.6) 7.17 (7.35-7.45)
[2018-02-17 06:30] LABS: ALBUMIN 3.8 g/dL (3.5-5.0); CALCIUM 9.5 mg/dL (8.8-10.2); PHOSPHORUS 10.6 mg/dL (2.7-4.5)
[2018-02-17] MEDS ORDERED: D50W SYRINGE IV ONE (06:38)
[2018-02-17] MEDS ORDERED: NS 2,000 ML MISC PRN ×2 (06:48→07:32)
[2018-02-17] MEDS: HUMULIN R SUBQ SCH ×4 (06:50→20:48)
[2018-02-17] MEDS: SYNTHROID PO SCH (06:50)
[2018-02-17] MEDS ORDERED: D50W SYRINGE ONE (06:53)
[2018-02-17] MEDS ORDERED: SODIUM BICARBONATE 8.4% IV PUSH ONE (07:15)
--- NOTE | 2018-02-17 07:28 | Diag Imaging Result Doc PS360 ---
EXAM: CHEST-PORTABLE 02/17/2018 HISTORY: abnormal exam TECHNIQUE: AP portable at 0517 COMMENT: There is increased pulmonary vascularity and interstitial opacity bilaterally. The heart size is enlarged. The inspiration is suboptimal. Compared to 02/16/2018 the interstitial opacities are slightly worse. IMPRESSION: Pulmonary edema. Electronically signed by Cipriano Westbrook 02/17/2018 7:26 AM
[2018-02-17 07:29] LABS: SEGS 100 % (42-75)
[2018-02-17] MEDS ORDERED: HEPARIN IV PRN (07:32)
[2018-02-17] MEDS ORDERED: TIGHT: 0.2 ML/HR FOR DIALYSIS MISC PRN (07:32)
[2018-02-17] MEDS: BASAGLAR SUBQ SCH ×2 (08:16→20:44)
[2018-02-17] MEDS: LIPITOR PO SCH (10:12)
[2018-02-17] MEDS: FLOMAX PO SCH (10:12)
[2018-02-17] MEDS: ELIQUIS PO SCH (10:12)
[2018-02-17] MEDS: NEPHRO-VITE PO SCH (10:13)
[2018-02-17] MEDS: TUMS PO SCH ×3 (10:13→17:11)
[2018-02-17] MEDS: VITAMIN D PO SCH (10:13)
[2018-02-17] MEDS: MIRALAX PO SCH (10:13)
[2018-02-17] MEDS: ROCALTROL PO SCH (10:13)
[2018-02-17] MEDS: ROBITUSSIN-DM PO SCH ×3 (10:13→17:10)
[2018-02-17] MEDS: ZYLOPRIM PO SCH (10:14)
[2018-02-17] MEDS: GEODON IM PRN (11:24)
[2018-02-17] MEDS: STERILE WATER INJ. INJ PRN (11:25)
--- NOTE | 2018-02-17 12:23 | NEPHROLOGY PROGRESS NOTE ---
DATE: 02/17/2018 TIME SEEN: 0715. SUBJECTIVE: Mr. Ayala is resting quietly in bed. The head of the bed is elevated. He remains restrained on BiPAP. OBJECTIVE: His most recent vital signs: Temperature 98.1, blood pressure 140/ 51, heart rate 103, respirations 23. He is currently on 40% BiPAP. His last recorded saturation is 92%. He has had 115 in, 4178 out with 4 L on dialysis. LABORATORY DATA: Sodium 137, potassium 6, chloride 92, CO2 of 27. BUN 75, creatinine 8, glucose 49. Anion gap of 18, calcium 9.5, phosphorus 10.6, magnesium 2.2, albumin 3.8. White count 14.5, hemoglobin 10.1, hematocrit 32.2 with a platelet count of 126,000. ABGs: pH 7.17, CO2 of 82, PO2 of 77, bicarb 24.1, lactate 1.4 on a BiPAP of 40%. PHYSICAL EXAMINATION: General: This is a 77-year-old elderly male. He is currently resting in bed. Head of the bed is elevated. He has been transferred to ICU secondary to fluid volume overload with poor respiratory status. The patient has been started on risperidone. He is tolerating this well. More restful in bed. Continues bilateral restraints. HEENT: Normocephalic, atraumatic. Conjunctivae pale. JAMES. Mucous membranes dry. Neck: Supple. Trachea midline. Unable to determine JVD due to BiPap mask. Cardiovascular: He is irregularly irregular today. He is having frequent PACs. He has a soft systolic murmur. Lungs: Clear to auscultation bilateral though diminished. Occasional faint crackle noted on expiration. Remains on BiPAP support. Abdomen: Obese, soft, nontender, positive bowel sounds. Genitourinary: Not inspected. Minimal void with dialysis assist. Extremities: Continues with 2 to 3+ lower extremity edema. Neurological: Alert to person only. ASSESSMENT AND PLAN: 1. Chronic kidney disease, stage 5D. The patient had dialysis treatment yesterday. We were able to pull 4 L of ultrafiltration. Due to his fluid volume overload status, we will place him on dialysis today. He is to be on a 2 K bath. He is to dialyze for 4-5 hours again. We will attempt to pull patient to 3 to 4 L of ultrafiltration as tolerated per BP. 2. Anemia. This is close to target. 3. Respiratory status. He does remain on BiPAP support. Again, with assistance with dialysis. 4. Leukocytosis. Patient is on Rocephin and vancomycin renally dosed I would to thank you for allowing us to follow with this patient. Dictated by RACHELL Cornell for Esteban Soriano MD Face to face encounter, data reviewed, discussed with Michelle Pace on 02/17/18. I agree with the above assessment and plan of care. cc: RACHELL Cornell MD Stephen W. Harbin, MD [facility]
--- NOTE | 2018-02-17 13:17 | Extremity Venous Study ---
PROCEDURE NAME: Venous U/S Right Leg - 02/14/2018 STUDY: Right lower extremity venous ultrasound. REQUESTING PHYSICIAN: Esteban Soriano MD. INDICATIONS: Pain, edema and redness right medial thigh. FINDINGS: Deep and superficial veins of the right lower extremity visualized. The vessels are compressible with forward flow. There is no evidence of deep or superficial thrombosis. There are segments of the greater saphenous vein that are surgically absent. SUMMARY: No deep or superficial venous thrombosis seen in the right lower extremity. cc: MD Esteban Villar MD Stephen W. Harbin, MD
[2018-02-17] MEDS ORDERED: VANCOMYCIN 1 GM/NS 1 GM/250 ML IVPB IV ONE (17:00)
--- NOTE | 2018-02-17 18:17 | PROGRESS NOTE ---
DATE: 02/17/2018 SUBJECTIVE: Patient has been moved to the ICU due to worsening hypercapnia and confusion. So far he has had dialysis yesterday and day before yesterday but has not really been able to return to see a great amount of improvement in his lung situation. He remains on stronger antibiotics, is on BiPAP. He has been less responsive this morning. OBJECTIVE: Afebrile, pulse 99, respirations 19, blood pressure 144/66, O2 saturation on BiPAP 93%, FiO2 40%.CV: RRR. Lungs: Rhonchi bilaterally. Abdomen: Protuberant, nontender. Extremities: Some lower extremity edema. The patient not responsive well. He does move his extremities but is quite confused. LAB DATA: Shows white count of 14.5, hemoglobin 10.1, platelets 126,000, PTT 28.8. ABG on 40% BiPAP reveals pH 7.17, pCO2 82, PO2 77, HC03 24, O2 saturation 93.5. Blood sugar low this morning at 49. Sodium 137, potassium 6.0, chloride 92, CO2 27, BUN 75, creatinine 8.0, phosphorus 10.6, calcium 9.5, magnesium 2.2, albumin 3.8. Chest x-ray shows pulmonary edema, slightly worse than yesterday. ASSESSMENT: 1. Acute respiratory distress with hypercapnia, persistent. 2. Pronounced diastolic congestive heart failure exacerbation with patient having not been able to withstand good infiltration of his blood for the amount of time Dr. Soriano had recommended outpatient and this seems to have gradually built up on him and worsened. 3. Bronchitis. 4. End-stage renal disease on hemodialysis. 5. Hyperkalemia. 6. Coronary artery disease. 7. Paroxysmal atrial fibrillation/flutter on chronic anticoagulation with Eliquis but now off of the Eliquis due to inability to take the oral medication. 8. Hypothyroidism. 9. Remote history of bladder cancer. 10. Hypercholesterolemia. 11. Insulin-requiring diabetes mellitus. 12. Delirium with hypercapnia. PLAN: Dr. Soriano continues to try to work to dialyze some of the fluid off at this point. Dr. uNll has been consulted to assist and ventilate should that be required as patient and his were desirous of that. Continue IV antibiotics in the form of Rocephin, Zithromax, vancomycin, albuterol nebs, BiPAP, Solu-Medrol, SSI and aggressive supportive care. cc: Pop Ward MD
[2018-02-17] MEDS: LOVENOX SUBQ SCH (18:33)
[2018-02-17] MEDS: ROCEPHIN 1 GM in NS 50 ML IV SCH (20:42)
[2018-02-17] MEDS ORDERED: SODIUM BICARBONATE 8.4% IV PUSH SCH (21:45)
[2018-02-17] MEDS: ZITHROMAX 500 MG/NS 500 MG/250 ML IVPB IV SCH (21:53)
[2018-02-17] MEDS: SODIUM BICARBONATE 8.4% INJ SCH (22:33)
[2018-02-18] MEDS: ALBUTEROL NEB INH SCH ×6 (03:02→23:11)
--- NOTE | 2018-02-18 04:28 | PULMONOLOGY PROGRESS NOTE ---
DATE: 02/17/2018 SUBJECTIVE: The patient will open his eyes. He remains on BiPAP. He has no increased work of breathing. OBJECTIVE: Vital Signs: The patient has remained afebrile for the last 24 hours. He is currently being initiated on hemodialysis. Blood pressure 122/81, heart rate 100, respiratory rate 21, oxygen saturation 96%. HEENT: Pupils are equal and reactive. Oropharynx appears clear. Neck: Supple. Chest: Reveals diminished breath sounds bilaterally. Cardiac Examination: S1 and S2. Abdomen: Obese and soft. Extremities: Reveal chronic lower extremity venous insufficiency. Laboratories: Chest x-ray reveals bilateral pulmonary edema with cardiomegaly with no significant improvement. IMPRESSION: A 77-year-old with morbid obesity, a long history of diabetes mellitus, chronic hypercapnic respiratory failure, obesity, prior tobacco use, with acute hypoxemic and acute hypercapnic respiratory failure with a component of delirium. I had discussion with his . The patient does not wish long-term ventilatory support. By her description, he has had a progressive decline over the last year and has not been able to get out of bed and bathe himself or take care of himself for at least 3 months. RECOMMENDATIONS: 1. Continue fluid removal as tolerated. 2. Continue BiPAP. Will re-evaluate removing BiPAP on Friday morning. 3. Continue to supplement bicarbonate. 4. Prognosis is guarded to poor given description of progressive decline by his . End of life discussions are in progress. cc: MD Pop Alvares MD
[2018-02-18] MEDS: SODIUM BICARBONATE 8.4% INJ SCH (05:00)
[2018-02-18] MEDS: SOLU-MEDROL IV SCH ×3 (05:00→20:04)
[2018-02-18 05:21] LABS: ALLEN TEST YES; BE 3.5 mmoll (-3.0-3.0); BLOOD TYPE ARTERIAL; HCO3-(ACT) 27.6 mmoll (20.0-26.0); METHB 0.5 % (0.0-1.5); O2(CT) 19.4 mL/dL (15.0-23.0); O2HB 96.3 % (95.0-99.0); PO2(98.6) 131 mmHg (60-100); SAMPLE BLOOD; SAO2 97.6 % (95.0-100.0); THB 14.2 g/dL (11.5-17.4); pH(98.6) 7.34 (7.35-7.45)
[2018-02-18 05:22] LABS: MODALITY BI PAP; PCO2(98.6) 57 mmHg (35-45)
[2018-02-18 06:38] LABS: HEMATOCRIT 32.6 % (42.0-52.0); HEMOGLOBIN 10.5 g/dL (14.0-18.0); IMM GRAN# 0.11 X1000 (0.0-0.04); IMM GRAN% 0.9 % (0.0-0.5); LYMPH# 0.69 X1000 (1.2-3.4); LYMPH% 5.8 % (20.5-51.1); MCH 33.4 PG (27-31); MCHC 32.2 g/dL (33-37); MCV 103.8 FL (81-99); MONO# 0.63 X1000 (0.11-0.59); MONO% 5.3 % (1.7-9.3); MPV 10.5 FL (7.4-10.4); NEUT# 10.52 X1000 (1.4-6.5); PLT 121 X1000 (130-400); RBC 3.14 XMIL (4.7-6.1); WBC 11.95 X1000 (4.8-10.8)
[2018-02-18] MEDS: HUMULIN R SUBQ SCH ×4 (06:38→20:13)
[2018-02-18] MEDS ORDERED: HEPARIN IV PRN (06:48)
[2018-02-18] MEDS ORDERED: NS 2,000 ML MISC PRN (06:48)
[2018-02-18] MEDS ORDERED: TIGHT: 0.2 ML/HR FOR DIALYSIS MISC PRN (06:48)
[2018-02-18 07:05] LABS: ALBUMIN 3.7 g/dL (3.5-5.0); CALCIUM 10.4 mg/dL (8.8-10.2); CREATININE 5.1 mg/dL (0.7-1.2)
--- NOTE | 2018-02-18 07:40 | Diag Imaging Result Doc PS360 ---
EXAM: CHEST-PORTABLE INDICATION: respiratory failure TECHNIQUE: One view COMPARISON: 02/17/2018 FINDINGS: Pulmonary venous congestion and interstitial thickening is again noted suggesting edema. It may have marginally improved during the interval. No new consolidation is identified. Cardiac silhouette is stable. IMPRESSION: Stable to marginal improvement of the pulmonary edema seen previously. Electronically signed by Brendon Woodall 02/18/2018 7:38 AM
[2018-02-18 07:46] LABS: POTASSIUM 5.2 mmol/L (3.5-5.1)
[2018-02-18] MEDS: BASAGLAR SUBQ SCH ×2 (08:04→20:12)
[2018-02-18] MEDS: MIRALAX PO SCH (08:05)
[2018-02-18] MEDS: FLOMAX PO SCH (08:05)
--- NOTE | 2018-02-18 09:42 | NEPHROLOGY PROGRESS NOTE ---
DATE: 02/18/2018 TIME SEEN: 07 SUBJECTIVE: Mr. Ayala is more awake today. He recognizes me though he cannot remember my name. He remains on BiPAP. VITAL SIGNS: His most recent vital signs include temperature 97.7 degrees, blood pressure 146/67, heart rate 101, respirations 18. He remains on 40% BiPAP. Last recorded saturation 97%. He has had 725 in. He has had 6 L removed on dialysis yesterday. LABORATORY DATA: Sodium 139, potassium 5.2, chloride 96, CO2 27, BUN 45, creatinine 5.1, glucose 95. Anion gap is 16, calcium 11.4, phosphorus is 9, albumin of 3.7. White count 11.98, hemoglobin 10.5, hematocrit 32.6 with a platelet count of 121,000. ABGs with pH 7.34, CO2 57, PO2 131, bicarb 27.6, again on BiPAP of 40%. PHYSICAL EXAMINATION: General: This is a 77-year-old white male who is currently resting in bed. He appears chronically ill though he is resting quietly in restraints. HEENT: Normocephalic, atraumatic. Conjunctivae pale. He has JAMES. Mucous membranes dry. Neck: Supple. Trachea midline. Unable to determine JVD due to BiPAP mask. Cardiovascular: Irregular /irregular rate and rhythm today. He does have some frequent PACs. Soft systolic murmur. Lungs: Clear to auscultation bilaterally. Equal excursion. Abdomen: Soft, nontender. Positive bowel sounds. Genitourinary: Not inspected. Minimal void with dialysis assist. Extremities : Continues with 2 to 3+ lower extremity edema. Neurological: He is alert to person. ASSESSMENT AND PLAN: 1. Chronic kidney disease stage 5D. The patient is scheduled for his dialysis treatment today in an attempt to assist with his fluid volume overload. We will place him on a 2-K bath. He is to dialyze for 3-1/2 hours. We will attempt to pull 4 to 6 L of ultrafiltration as tolerated. 2. Electrolytes, acid-base balance, and anemia. These all remain acceptable. 3. Respiratory status. The patient remains on BiPAP support with dialysis assist. 4. Leukocytosis. He remains on vancomycin. We have had an end-of-life discussion with his this a.m. Family is coming into town to see the patient after dialysis. The plan is to place him in a private room up on the floor for family visitation. I will place him on a mask, remove restraints and BiPAP, and evaluate Do Not Resuscitate status in regards with continuing further care. I would like to thank you for allowing us to follow with this patient. Dictated by RACHELL Cornell for Esteban Soriano MD Face to face encounter, data reviewed, discussed with Michelle Pace on 02/18/17. I agree with the above assessment and plan of care. cc: RACHELL Cornell MD Stephen W. Harbin, MD [facility]
--- NOTE | 2018-02-18 11:31 | PULMONOLOGY PROGRESS NOTE ---
DATE: 02/18/2018 SUBJECTIVE: The patient has been placed on a 50% face mask. He is awake, alert and conversant. He has no increased work of breathing. OBJECTIVE: Vital Signs: Blood pressure 103/58, heart rate 108, respiratory rate 12 and unlabored. Oxygen saturation 96%. HEENT: Pupils are equal and reactive. Oropharynx is clear. Neck: Supple. Chest: Reveals prolonged expiratory phase without wheezing or rhonchi. Cardiac: S1 and S2. Abdomen: Obese and soft. Extremities: Without edema. LABORATORY DATA: Arterial blood gas reveals a pH of 7.34, pCO2 57, pO2 131. Chemistry: Sodium 139, potassium 5.2, chloride 96, bicarbonate 27, BUN 45, creatinine 5.1. Chest x-ray reveals mild decrease in venous congestion. IMPRESSION: A 77-year-old with morbid obesity, chronic hypercapnic respiratory failure, acute hypoxemic and acute hypercapnic respiratory failure, mild fluid overload, long history of diabetes, with component of delirium. Clinically, he is in improving. He is currently tolerating a face mask. End of life discussions have taken place between Dr. Soriano and his . They have decided to remove BiPAP and convert the patient to a Do Not Resuscitate, and continue comfort measures. RECOMMENDATIONS: 1. Agree with end of life discussions as outlined above. 2. Continue face mask for hypoxemic respiratory failure. 3. Following with you. cc: MD Pop Alvares MD
[2018-02-18] MEDS: GEODON IM PRN (13:27)
--- NOTE | 2018-02-18 13:46 | PROGRESS NOTE ---
DATE: 02/18/2018 SUBJECTIVE: The patient remains in the ICU. He is off the BiPAP and on a 50% mask currently. He remains somewhat confused, but better than yesterday. ABGs have looked better today than yesterday, and he has been receiving daily dialysis. OBJECTIVE: Vital Signs: Afebrile, pulse 98, respirations 20, blood pressure 106/96, O2 saturation 100% on 50% mask. Neurologic: The patient moves all extremities well. He is alert. He answers some questions. He does remain mildly confused, less so than yesterday. Cardiovascular: Regular rate and rhythm with occasional ectopy. Lungs: Minimal rhonchi bilaterally. Abdomen: Soft, nontender, nondistended. Extremities: Trace to 1 + lower extremity edema. LABORATORY DATA: White count 11.9, hemoglobin 10.5, platelets 121,000. Sodium 139, potassium 5.2, chloride 96, CO2 27, BUN 45, creatinine 5.1, glucose 95. Blood sugars in the low 100s otherwise. Calcium 10.4, phosphorus 9.0, albumin 3.7. ABG on BiPAP this morning at 40% revealed pH 7.34, pCO2 57, PO2 131, HC03 27.6, O2 saturation 97.6%, AA gradient 83. DIAGNOSTIC STUDIES: Chest x-ray reveals mild improvement in pulmonary edema. ASSESSMENT: 1. Respiratory distress, improved after BiPAP administration and hypercapnia has improved. 2. Do Not Resuscitate level 1 per family request as the patient is near the end of his life and family desires now comfort measures. Hemodialysis continues to try to remove fluid, which so far is being successful gradually. 3. Bronchitis. 4. End-stage renal disease, on hemodialysis. 5. Hyperkalemia, improved with dialysis. 6. Coronary artery disease. 7. Paroxysmal atrial fibrillation/flutter, on chronic Eliquis treatment, now being treated with Lovenox as he is not able to take oral well. 8. Hypothyroidism. 9. Remote history of bladder cancer. 10. Hypercholesterolemia. 11. Insulin-Requiring diabetes mellitus. 12. Delirium secondary to hypercapnia, improving. PLAN: Continue present supportive measures and plans for the patient to be transferred out of the unit for comfort measures noted, per Dr. Soriano's report. cc: MD PRETTY Martinez
[2018-02-18] MEDS: LOVENOX SUBQ SCH (16:37)
[2018-02-18] MEDS ORDERED: VANCOMYCIN 1 GM/NS 1 GM/250 ML IVPB IV ONE (17:00)
[2018-02-18] MEDS: ROCEPHIN 1 GM in NS 50 ML IV SCH (20:04)
[2018-02-18] MEDS: ZITHROMAX 500 MG/NS 500 MG/250 ML IVPB IV SCH (20:04)
[2018-02-18] MEDS ORDERED: INSULIN PEN NEEDLES ONE (20:16)
[2018-02-19] MEDS: GEODON IM PRN ×2 (00:50→14:22)
[2018-02-19] MEDS: STERILE WATER INJ. INJ PRN (00:50)
[2018-02-19] MEDS: SOLU-MEDROL IV SCH ×2 (03:16→13:07)
[2018-02-19] MEDS: ALBUTEROL NEB INH SCH ×4 (03:45→16:15)
[2018-02-19 05:32] LABS: ALBUMIN 3.6 g/dL (3.5-5.0); CALCIUM 10.3 mg/dL (8.8-10.2); CREATININE 7.4 mg/dL (0.7-1.2); PHOSPHORUS 11.9 mg/dL (2.7-4.5); POTASSIUM 5.4 mmol/L (3.5-5.1)
[2018-02-19] MEDS: HUMULIN R SUBQ SCH ×3 (06:15→16:30)
[2018-02-19] MEDS ORDERED: NS 2,000 ML MISC PRN (06:39)
[2018-02-19] MEDS ORDERED: HEPARIN IV PRN (06:39)
[2018-02-19] MEDS ORDERED: TIGHT: 0.2 ML/HR FOR DIALYSIS MISC PRN (06:39)
--- NOTE | 2018-02-19 07:14 | Diag Imaging Result Doc PS360 ---
EXAM: CHEST-PORTABLE 02/19/2018 HISTORY: respiratory failure TECHNIQUE: AP portable at 0516 COMMENT: There is patchy interstitial pulmonary edema particularly in the right lung. This was also present on the previous study of 02/18/2018 but is somewhat more accentuated by the less optimal inspiration on the current exam. IMPRESSION: Pulmonary edema. Electronically signed by Cipriano Westbrook 02/19/2018 7:12 AM
[2018-02-19] MEDS: BASAGLAR SUBQ SCH (09:17)
[2018-02-19] MEDS: FLOMAX PO SCH (09:17)
[2018-02-19] MEDS: MIRALAX PO SCH (09:18)
[2018-02-19] MEDS: LOVENOX SUBQ SCH (16:30)
--- NOTE | 2018-02-19 18:49 | NEPHROLOGY PROGRESS NOTE ---
DATE: 02/19/2018 TIME SEEN: 0650. SUBJECTIVE: Mr. Ayala is currently resting quietly in bed. The head of the bed is elevated. He is currently on a Ventimask. He does remain on bilateral upper wrist restraints. He does remain confused. OBJECTIVE: Most recent vital signs: Temperature 97.6, blood pressure 141/50, heart rate 102, respirations 16. He is currently on 40% Ventimask. Last reported saturation is 98%. He has had 550 in. He has had 0 recorded out. LABORATORY DATA: Sodium 140, potassium 5.4, chloride 91. CO2 is 27, BUN 85, creatinine 7.4, glucose 161. Anion gap is 22. Calcium 10.3, phosphorus 11.9, albumin 3.6. Previous hemoglobin 10.5 on the . OBJECTIVE/PHYSICAL EXAMINATION: General: This is a 77-year-old white male who is currently resting quietly in bed. He appears in mild distress. He continues to be restrained to the upper extremities. HEENT: Normocephalic, atraumatic. Conjunctivae are pale pink. PERRL. Mucous membranes are dry. Neck: Supple. Trachea midline. He does have positive JVD, 6 mm. Cardiovascular: Irregular rate and rhythm. He continues with frequent PACs. He has a systolic murmur present. Lungs: Clear to auscultation bilaterally. Equal excursion on O2 support. Abdomen: Large, round, soft and nontender. Positive bowel sounds present. Hypoactive. Extremities: He continues with 1 to 2+ lower extremity edema up into the upper thighs mostly. Neurologic: As mentioned above. ASSESSMENT 1. Chronic kidney disease stage 5D. Patient was scheduled for a routine dialysis treatment yesterday. They were unable to cannulate his left forearm fistula. It continues to have positive good thrill. We will plan for dialysis today. He is to be placed on a 2K bath. We will dialyze him for 3.5 to 4 hours. We will attempt to pull the patient to his outpatient dry weight, or if possible, at least 1 kg below his dry weight. 2. Electrolytes and acid-based balance, again with correction on dialysis. 3. Anemia. This is stable. 4. Bronchitis with respiratory distress. The patient has improved with gentle daily dialysis with fluid volume removal. Again, we will attempt that for today. 5. Leukocytosis. The patient remains on IV antibiotics with vancomycin. PLAN: We have discussed end-of-life care with the patient's . He is currently on a Ventimask. We have planned to transfer the patient to a private room to be able to be with family members with discussions of possible withdrawal of care. I would like to thank you for allowing us to follow with this patient. Dictated by RACHELL Cornell for Esteban Soriano MD Face to face encounter, data reviewed, discussed with Michelle Pace on 02/19/18. I agree with the above assessment and plan of care. cc: RACHELL Cornell MD Stephen W. Harbin, MD [facility]
[2018-02-19] MEDS: MORPHINE IV PRN (21:28)
[2018-02-19 21:32] VITALS: BP 134/57
[2018-02-19] MEDS: ATIVAN IV PRN (21:40)
[2018-02-20] MEDS: MORPHINE IV PRN ×9 (00:29→23:56)
--- NOTE | 2018-02-20 01:35 | PROGRESS NOTE ---
DATE: 02/19/2018 SUBJECTIVE: The patient has remained quite confused. He has had loss of access for his hemodialysis as the fistula has collapsed. His and his 2 daughters are with him, and they are interested in him remaining a DNR level 1 and being made comfort measures only. OBJECTIVE: Afebrile, pulse 95, respirations 17, blood pressure 142/72, O2 saturation on Ventimask at 15 shows 97%. Cardiovascular: RRR. Lungs: Mild rhonchi bilaterally with some wheezes. Abdomen: Protuberant, nontender. Extremities: 1+ edema. Neurologic: The patient remains very confused. LABORATORY DATA: Sodium 140, potassium 5.4, chloride 91, CO2 of 27, BUN 85, creatinine 7.4, glucose 161, calcium 10.3. Phosphorus 11.9. Albumin 3.6. IMAGING STUDIES: Chest x-ray reveals continued pulmonary edema. ASSESSMENT: 1. Respiratory failure secondary to diastolic congestive heart failure. 2. [id number] level 1 with comfort measures now requested per family. 3. Bronchitis. 4. End-stage renal disease, previously on hemodialysis, with family now requesting for him to come off as they have lost the hemodialysis access. 5. Hyperkalemia. 6. Coronary artery disease. 7. Paroxysmal atrial fibrillation/flutter. 8. Hypothyroidism. 9. Remote history of bladder cancer. 10. Hypercholesterolemia. 11. Insulin-requiring diabetes mellitus. 12. Delirium secondary to hypercapnia. PLAN: We will move the patient out to the floor and off the stepdown unit. We will give him morphine as needed for discomfort, Ativan and Geodon p.r.n. Continue Ventimask, oxygenation but stop BiPAP, and stop antibiotics and the Lovenox. I totally agree with the family request, and Dr. Null and Dr. Soriano have spoken with the patient in regard to his prognosis as well. cc: Pop Ward MD
--- NOTE | 2018-02-20 06:55 | PULMONOLOGY PROGRESS NOTE ---
DATE: 02/19/2018 SUBJECTIVE: Patient is on a Venti mask. He has no increased work of breathing. He intermittently moans, but will not answer questions. OBJECTIVE: Vital signs: BP 134/57, heart rate 97, respiratory rate 18, oxygen saturation 96%. HEENT: Pupils are equal and reactive. Oropharynx appears slightly dry. Neck: Supple. Chest: Reveals shallow breath sounds bilaterally with faint crackles in the bases. Cardiac: S1, S2. Abdomen: Soft. Extremities: Without edema. LABORATORIES: Chest x-ray reveals shallow inspiration with pulmonary edema. No change. IMPRESSION: A 77-year-old with morbid obesity, chronic hypercapnic respiratory failure, acute hypoxemic, and acute hypercapnic respiratory failure, diabetes, with ongoing delirium. Patient's family has elected not to place him on BiPAP or mechanical ventilation. Withdrawal from dialysis is being discussed. RECOMMENDATIONS: 1. Continue comfort measures with Venti mask. 2. Ongoing end-of-life discussions as per above. 3. Prognosis is very poor. cc: MD Pop Alvares MD
--- NOTE | 2018-02-20 10:38 | NEPHROLOGY PROGRESS NOTE ---
DATE: 02/19/2018 SUBJECTIVE: The family has decided not to pursue any further dialysis. He is not making any urine. He is semicomatose. OBJECTIVE: Vital signs: Blood pressure unmeasurable. Heart rate 95, respirations 20, afebrile. General: No acute distress. Skin: Pale and dry. Eyes: Conjunctivae are pink. Oropharynx: Dry. Neck: Veins are not distended. Cardiovascular: Heart is regular. Lungs: Are equal with rhonchi. Abdomen: Obese, soft, normal bowel sounds. Extremities: 2+ edema. IMPRESSION AND PLAN: Chronic kidney disease 5D/respiratory failure. Comfort care only. All questions answered. cc: MD Pop Chow MD
[2018-02-20] MEDS: ATIVAN IV PRN ×3 (11:00→21:19)
[2018-02-20] MEDS: ATROPINE 1 % OPHTH SOLN SL PRN ×5 (12:57→23:56)
--- NOTE | 2018-02-20 13:37 | PROGRESS NOTE ---
DATE: 02/20/2018 SUBJECTIVE: The patient resting comfortably currently. Does not appear to be in any distress. His 2 daughters and his are with him and he is receiving some visits from friends. He is not talking, but able to listen to conversation at times. OBJECTIVE: Vital signs: Afebrile, pulse 95, respirations 20, blood pressure not checked this morning. Cardiovascular: RRR. Lungs: Rhonchi bilaterally. Extremities: 2+ edema. Patient resting comfortably. ASSESSMENT: 1. Comfort care related to diastolic congestive heart failure. 2. End stage renal disease now without dialysis per family request. 3. DNR level 1. 4. Bronchitis. 5. Hyperkalemia. 6. Coronary artery disease. 7. PAF/flutter. 8. Hypothyroidism. 9. Remote history of bladder cancer. 10. Hypercholesterolemia. 11. IRDM. 12. Delirium. PLAN: The restraints have been removed. He is not in any discomfort. Continue p.r.n. morphine and Ativan as required. Continue oxygen per nasal cannula as this is more tolerated by patient rather than the mask. cc: Pop Ward MD
--- NOTE | 2018-02-20 23:54 | PULMONOLOGY PROGRESS NOTE ---
DATE: 02/20/2018 SUBJECTIVE: The patient is lethargic. The patient's family reports he occasionally response to their voice. OBJECTIVE: He has been afebrile for the last 24 hours. No additional vital signs have been taken today.HEENT: Pupils are equal. Oropharynx appears dry. Neck: Supple. Chest: Is shallow breath sounds but clear. Cardiac: S1-S2. Abdomen: Is obese and soft. Extremities: Without edema. LABS: No new laboratories. IMPRESSION: 77-year-old with end-stage renal disease. He continues to decline. He currently is receiving comfort measures. RECOMMENDATION: Agree with current plan. Continue comfort measures. His resuscitation status has been addressed to allow patient to have a natural . All questions were answered. cc: MD Pop Alvares MD
[2018-02-21] MEDS: MORPHINE IV PRN ×6 (03:39→22:32)
[2018-02-21] MEDS: ATIVAN IV PRN ×5 (03:39→22:32)
[2018-02-21] MEDS: ATROPINE 1 % OPHTH SOLN SL PRN ×3 (03:40→18:59)
--- NOTE | 2018-02-21 12:15 | PROGRESS NOTE ---
DATE: 02/21/2018 SUBJECTIVE: The patient's family is in the room with him, and he has been comfortable with current medicine regime. He has not spoken to them in the last 24 hours. They are contemplating taking him home for his final hours with hospice care, so we are going to ask hospice to come and discuss with the family in detail. OBJECTIVE: No exam. ASSESSMENT: 1. Comfort care secondary to diastolic congestive heart failure. 2. End-stage renal disease; now off of dialysis. 3. DNR LEVEL 1. 4. Bronchitis. 5. Hyperkalemia. 6. Coronary artery disease. 7. Paroxysmal atrial fibrillation/flutter. 8. Hypothyroidism. 9. History of bladder cancer. 10. Hypercholesterolemia. 11. Insulin-required diabetes mellitus. 12. History of delirium, now stable on sedation. PLAN: Continue comfort measures. Hospice is going to discuss possible arrangement for hospice at home with the family. cc: Pop Ward MD
--- NOTE | 2018-02-21 14:41 | NEPHROLOGY PROGRESS NOTE ---
DATE: 02/21/2018 SUBJECTIVE: He is resting comfortably. Family denies pain, shortness of breath, etc. OBJECTIVE: Shallow respirations. Unresponsive to gentle tactile and verbal stimuli. Minimal edema. IMPRESSION: End of life. I offered home with Hospice, and they will consider this. They are comfortable with his level of care. No changes. cc: MD Pop Chow MD
--- NOTE | 2018-03-10 21:01 | DISCHARGE SUMMARY ---
ADMISSION DATE: 02/13/2018 DISCHARGE DATE: 02/22/2018 SUMMARY: DATE OF : 02/22/18 DIAGNOSES: 1. End-stage acute on chronic diastolic CHF related to #2. 2. End-stage renal disease with stoppage of dialysis per family request. 3. DNR level 1. 4. Bronchitis. 5. Hyperkalemia. 6. Coronary artery disease. 7. Paroxysmal atrial fibrillation / flutter. 8. Hypothyroidism. 9. History of bladder cancer. 10. Hypercholesterolemia. 11. IRDM. 12. Delirium. CONSULTANTS: 1. Christie Guevara, Nephrology. 2. Dr. Main Null, Pulmonary. PROCEDURES: 1. Venous Doppler studies right lower extremity on 02/14/2018. No evidence of superficial or DVT. 2. Chest x-ray done 02/15/2018. Poor inspiration, bibasilar atelectasis. 3. Chest x-ray done 02/16/2018 revealing no interval improvement with heart borderline enlarged, mild vascular distention. 4. Chest x-ray done 02/17/2018 revealing pulmonary edema. 5. Chest x-ray done 02/18/2018 revealing marginal improvement of pulmonary edema. 6. Chest x-ray done 02/19/2018 revealing pulmonary edema. REASON FOR ADMISSION AND HOSPITAL COURSE: The patient is a 77-year-old white male followed in my medical practice, who was also followed by Dr. Soriano and is on hemodialysis per Dr. Soriano. He came in with shortness of breath, prominent chest congestion, struggling to breathe at night. He had been coming off his dialysis treatments early as he was unable to complete them and requested and required that the staff at the hemodialysis clinic not continue past certain points. The patient said those extra few minutes seemed to make him extremely fatigued, so he was not getting off enough fluid and he seemed to go into CHF. He was admitted to the hospital and proBNP was 17,000, potassium 5.1, creatinine 8.5. White count 9.2, hemoglobin 10, platelets 163,000. ABG on room air was pH pH 7.35, pCO2 51, PO2 59, HC03 26, O2 sat 91.4. The patient was placed in the [facility] and restarted on his hemodialysis treatments. He was covered with antibiotics in the form of Rocephin and Zithromax and as he had quite significant wheezes was given Solu- Medrol and albuterol nebulizer treatments, Robitussin DM, oxygen supplementation during the day and BiPAP at night. Serial Accu-Cheks and SSI were administered and the patient continued on his Basaglar. Venous Dopplers were done of the right lower extremity on 02/14/2018 with no signs of DVT. Dr. Soriano tried to take extra fluid off the patient with hemodialysis and Dr. Null saw the patient and tried to encourage the use of the BiPAP. The patient was given sodium bicarbonate 2 ampules on 02/16/2018. By 02/17/2018, the patient had been moved to ICU due to worsening hypercapnia and confusion. Vancomycin was added to the antibiotic regimen. By 02/17/2018 the patient was not improving a great deal, so Dr. Null started discussions with the patient's and family regarding poor prognosis and Dr. Soriano continued that conversation as well, and I did as well. The patient was then placed on DNR level 1 per 's request and patient was placed in a private room where the family could be with him and comfort measures were pursued over the next 3 to 4 days. The patient subsequently without further hemodialysis on 2018. cc: Pop Ward MD MTDD
== END 2018-02-22 00:45 | disposition expired | DRG 291 ==
LOC: DIRADM → OBSVTOIN 15:56 → 3S 16:21 → ICU 02-16 13:50 → 3S 02-19 07:21 → 3N 02-20 18:20
PROVIDERS: ADMIT Family Medicine; ATTEND Family Medicine
CPT/HCPCS: 36415; 71010; 71020; 71045; 71046; 80048; 80069; 82805; 82948; 83036; 83605; 83735; 83880; 85025; 85730; 87040; 93971; 94640; 94660; 94761; 94762; A9270; J0456; J0696; J1644; J1650; J2060; J2270; J2930; J3370; J3486; J7030; XXXXX